=== PATIENT | female | born 1960 | race Caucasian/White ===

== ENCOUNTER 2018-10-30 06:17 | Inpatient (IN) | payer SELFPAY ==
[2018-10-30 07:01] LABS: #Basophils 0.1 thou/uL (0.0-0.2); #Eosinphils 0.2 thou/uL (0.0-0.7); #Lymphocytes 2.3 thou/uL (1.20-3.40); #Monocytes 0.5 thou/uL (0.11-0.59); #Neutrophils 10.2 thou/uL (1.40-6.50); %Basophils 1.1 % (0.0-1.0); %Eosinophils 1.2 % (0.0-10.0); %Lymphocytes 17.4 % (21.0-51.0); %Monocytes 4.1 % (0.0-10.0); %Neutrophils 76.3 % (42.0-75.0); Hemoglobin 15.7 g/dL (12.0-16.0); Mean Corpuscular HGB CONC 33.3 g/dL (32.0-36.0); Mean Corpuscular Hemoglobin 29.7 pg (27.0-31.0); Mean Corpuscular Volume 89.2 fL (78.0-98.0); Mean Platelet Volume 7.6 fL (7.4-10.4); Platelet Count 349 thou/uL (130-400); RBC Distribution Width 12.7 % (11.5-14.5); Red Blood Cell (RBC) Count 5.29 mill/uL (4.20-5.40); White Blood Cell (WBC) Count 13.4 thou/uL (4.8-10.8)
[2018-10-30 07:20] LABS: Bacteria/HPF None Seen HPF (None Seen); Bilirubin Negative (Negative); Blood, Urine 1+ (Negative); Clarity Clear (Clear); Glucose, Urine (Dipstick) Normal (Negative); Leukocyte Negative Leu/uL (Negative); Mucous/LPF Rare LPF (<2+); Nitrite Negative (Negative); Protein, Urine (Dipstick) 100 mg/dL (Neg-Trace); Squamous Epithelial 0-3 HPF (0-3); Urobilinogen Normal mg/dL (Less than 2); WBC/HPF 0-3 HPF (0-3)
[2018-10-30 07:23] LABS: ALT (SGPT) 11 U/L (8-55); AST (SGOT) 20 U/L (5-34); Albumin 4.7 g/dL (3.5-5.0); Alkaline Phosphatase 130 U/L (40-150); Anion Gap 14 mmol/L (10-20); BUN (Urea Nitrogen) 13 mg/dL (9.8-20.1); Bilirubin, Total 0.8 mg/dL (0.2-1.2); Calc. Creatinine Clearance 0 mL/min (70-130); Calcium 10.2 mg/dL (7.8-10.44); Carbon Dioxide 24 mmol/L (22-29); Chloride 104 mmol/L (98-107); Estimated GFR-MDRD 52; Globulin 4.1 g/dL (2.4-3.5); Glucose 100 mg/dL (70-105); Potassium 4.4 mmol/L (3.5-5.1); Protein, Total 8.8 g/dL (6.0-8.3); Sodium 138 mmol/L (136-145)
[2018-10-30] MEDS ORDERED: Nitroglycerin 0.4 MG TAB 1 EACH ONE (07:32)
[2018-10-30 07:55] LABS: Acetaminophen Less than 6.0 mcg/mL (10.0-30.0); Alcohol Less than 10 mg/dL (Less than 10); Salicylate Less than 8.0 mg/dL (15.0-30.0)
--- NOTE | 2018-10-30 07:56 | RAD ---
RADIOGRAPH CHEST 1 VIEW: DATE: 10/30/2018 HISTORY: 58-year-old female with chest pain FINDINGS: There are no airspace densities, pulmonary edema, pneumothorax, or cardiomegaly. The lateral costophr enic angles are sharp. IMPRESSION: No acute cardiopulmonary findings.
--- NOTE | 2018-10-30 08:05 | CT ---
CT angiogram thorax with contrast CT angiogram abdomen with contrast: DATE: 10/30/2018 HISTORY: 58-year-old female with left-sided chest pain and back pain. Rule out aortic dissection. TECHNIQUE: IV injection of iodinated contrast. Arterial bolus chasing technique. Scan acquisition from top of aortic arch to iliac crests. 3-D MIP reconstructions. FINDINGS: No aortic aneurysm, dissection, or rupture. Lung apices excluded from images. No suspicious pulmonary mass, pulmonary edema, consolidation, pleural effusion, or pneumothorax ident ified. No cardiomegaly or pericardial effusion. Not enough IV contrast in pulmonary arteries to evaluate for pulmonary thromboembolism. No mediastinal or hilar lymphadenopathy. High-grade degenerative disc disease in several levels of mid thoracic spine and at least one level i n upper lumbar spine. No compression fracture of thoracic spine or lumbar spine. Asymmetrically small left kidney containing a large number of low-density lesion replacing much of th e left renal parenchyma. At least most of these represent cysts. Some of them could represent hemorrhagic cysts. One of the le sions at the apex of the left renal upper pole parenchyma appears solid, as previously described on CTA of the chest of 08/15/2016 report. Within the limitations of an arterial phase only scan, no obvious abnormality identified involving ri ght kidney, pancreas, liver, spleen, or adrenals. The visualized portions of small bowel demonstrate no dilation. No obvious gross abnormality of visualized portions of colon. No ascites. IMPRESSION: 1) no aortic dissection, aneurysm, or rupture. 2) abnormal left kidney. See comments above. On an elective basis, a multiphase CT of the abdomen wit h and without contrast (renal mass protocol) is recommended. 3) thoracic and lumbar spondylosis.
[2018-10-30] MEDS ORDERED: Aspirin Chewable 81 MG TAB ONE (08:18)
[2018-10-30] MEDS ORDERED: Morphine 4 MG/ML VIAL ONE ×2 (08:25→12:45)
[2018-10-30] MEDS ORDERED: Amlodipine 5 MG TAB ONE (09:05)
[2018-10-30] MEDS ORDERED: Labetalol HCl 100 MG/20 ML VIAL ONE (09:05)
[2018-10-30 09:17] LABS: Amphetamine Not Detected (NotDetected); Barbiturates Screen Not Detected (NotDetected); Benzodiazepine Screen Not Detected (NotDetected); Cocaine Metabolite Screen Not Detected (NotDetected); Medtox Control Line Valid? VALID (VALID); Medtox Reader # READER 4; Methadone Not Detected (NotDetected); Methamphetamine Not Detected (NotDetected); Opiate Screen Not Detected (NotDetected); Oxycodone Screen Not Detected (NotDetected); Phencyclidine (PCP) Not Detected (NotDetected); THC/Cannabinoid Screen Detected (NotDetected); Tricyclic Screen Not Detected (NotDetected)
[2018-10-30] MEDS ORDERED: Levothyroxine Sodium 100 MCG TAB PO SCH (09:30)
[2018-10-30 10:25] LABS: Troponin I 0.012 ng/mL (< 0.028)
[2018-10-30 13:32] LABS: Troponin I Less than 0.010 ng/mL (< 0.028)
[2018-10-30] MEDS ORDERED: niCARdipine 20MG In NaCl 20 MG/200 ML BAG ONE (14:57)
[2018-10-30] MEDS ORDERED: ISOVUE-370 76%-LOCM 1 ML ONE (15:58)
[2018-10-30 16:18] LABS: Free T4 (Free Thyroxine) 0.82 ng/dL (0.70-1.48)
[2018-10-30 16:53] VITALS: BMI 28.0
[2018-10-30] MEDS: Carvedilol 3.125 MG TAB PO SCH (16:58)
[2018-10-30] MEDS: Morphine 4 MG/ML VIAL SLOW IVP PRN ×2 (16:58→21:37)
--- NOTE | 2018-10-30 19:11 | HP ---
CHIEF COMPLAINT: Left flank and left-sided chest pain. HISTORY OF PRESENT ILLNESS: The patient is a 58-year-old female, who had the chest pain going on for, according to her, more than a year. Every single day, she has continuous pain. It fluctuates in this intensity. At the time of my evaluation, she rates the pain at 3 after she received a morphine injection. She denies any shortness of breath, but she started having some nausea and vomiting on and off for the last year or so, and she has this left flank pain and back pain basically on daily basis. She was told that she has a left renal mass and she needs to be seen by a specialist. Apparently, she was calling several different places and since she does not have any funds, she was not accepted and she was not seen by anybody, even she called the MD Duffy with negative results. She has some hot flashes on and off. No fever. No chills. No headaches. She gets constipated on and off. She has not been taking any medication for more than a year. Her primary care physician used to be Dr. Trinidad, but not anymore. She did not see him for more than a year. Her surrogate decision maker is Arnie Beckwith, her . PAST MEDICAL HISTORY: Positive for, 1. Hypertension. 2. Hypothyroidism. 3. Hyperlipidemia. PAST SURGICAL HISTORY: Hysterectomy. SOCIAL HISTORY: She drinks occasionally. She smokes less than a pack per day. She uses cannabis too. She does not use any IV pain drugs. FAMILY HISTORY: Her mother in her 80s, and she was on hemodialysis. She does not really know the exact cause of her . Her father at the age of 64 and he had a stomach cancer. ALLERGIES: NONE. MEDICATIONS: None. REVIEW OF SYSTEMS: All systems were reviewed and the symptoms were negative, except for those symptoms mentioned in the HPI. PHYSICAL EXAMINATION: VITAL SIGNS: Her blood pressure is 226/126, pulse is 71, respirations are 20. Pain is level at 3. Pulse oximetry is 96% on room air. HEENT: Her head is atraumatic and normocephalic. Eyes are PERRLA. Sclerae are nonicteric. Conjunctivae are pinkish. Oral mucosa is moist. NECK: Supple. LUNGS: Clear. HEART: S1, S2 normal. No S3. No S4. No any murmur. ABDOMEN: Soft, nontender, nondistended. Bowel sounds are present. No organomegaly. EXTREMITIES: No clubbing, cyanosis, or edema. NEUROLOGICAL: She is alert and oriented x4. There are no any motor or sensory deficits present. The left flank and below her left breast area is tender to touch. LABORATORY DATA: Labs showed a white count of 13.4, hemoglobin is 15.7, hematocrit is 47.2, platelet count is 349,000. Normal chemistry, except for albumin of 4.7, globulin of 4.1, lipase of 40. TSH third generation 22.63. Urinalysis showed 100 of proteins, 10 of ketones, 1+ blood, 7 to 10 rbc's, 4 to 6 hyaline casts. Toxicology urine screen test showed positive for cannabinoids. Alcohol less than 10. IMAGING STUDIES: Chest x-ray personally reviewed by me did not show any acute cardiopulmonary changes. CT angiogram for dissection personally reviewed by me showed no aortic dissection, aneurysm, or rupture. Abnormal left kidney with some cystic structures, with some hemorrhagic component, and probably some solid component. EKG to be done. IMPRESSION: 1. Chest pain/left flank pain, could be related to her left kidney cyst and possible neoplasm, although this could be also a chest wall pain, but this is less likely since this is going on for quite some time. 2. Hypertensive emergency. 3. Hypothyroidism. 4. The patient is positive for cannabis. 5. Elevated white count, etiology to be established. 6. Noncompliance. PLAN: Full admission to Critical Care Unit. IV Hep-Lock. Activities, bedrest and bathroom privileges. Morphine IV push 4 mg every 4 hours p.r.n. as needed and Cardene drip to control her blood pressure to approximately 140s systolic over 80 diastolic. The patient received amlodipine and labetalol in the emergency room. Her blood pressure went down, but very soon after the treatment, it went up again to systolic more than 200s. We will get Urology consultation for the left kidney. The patient received 100 mcg of Synthroid p.o. for her elevated TSH at 22. We will get three T3 and free T4. We will continue 100 mcg daily. We will get an additional information about the current condition by doing electrocardiogram, which is pending at this moment of my dictation. We will do DVT prophylaxis with SCDs and Lovenox, and we will start her on carvedilol 3.125 mg twice a day and up-titrate as needed. Job ID: [id number]
[2018-10-30] MEDS: niCARdipine 25 MG in Sodium Chloride 0.9% 250 ML 250 ML IVPB SCH (19:47)
[2018-10-30] MEDS: Ondansetron PF 4 MG/2 ML Vial IVP PRN (20:38)
[2018-10-30] MEDS: Famotidine 20 MG TAB PO SCH (20:38)
[2018-10-31] MEDS: Morphine 4 MG/ML VIAL SLOW IVP PRN ×4 (01:49→17:24)
[2018-10-31] MEDS ORDERED: hydrALAZINE 20 MG/ML VIAL SLOW IVP PRN (02:36)
[2018-10-31 04:32] LABS: #Basophils 0.1 thou/uL (0.0-0.2); #Eosinphils 0.2 thou/uL (0.0-0.7); #Lymphocytes 2.2 thou/uL (1.20-3.40); #Monocytes 0.5 thou/uL (0.11-0.59); #Neutrophils 7.9 thou/uL (1.40-6.50); %Basophils 0.5 % (0.0-1.0); %Eosinophils 1.4 % (0.0-10.0); %Lymphocytes 20.6 % (21.0-51.0); %Neutrophils 72.6 % (42.0-75.0); Hemoglobin 14.3 g/dL (12.0-16.0); Mean Corpuscular HGB CONC 32.6 g/dL (32.0-36.0); Mean Corpuscular Hemoglobin 29.9 pg (27.0-31.0); Mean Corpuscular Volume 91.7 fL (78.0-98.0); Mean Platelet Volume 7.9 fL (7.4-10.4); Platelet Count 281 thou/uL (130-400); RBC Distribution Width 12.8 % (11.5-14.5); White Blood Cell (WBC) Count 10.9 thou/uL (4.8-10.8)
[2018-10-31 05:00] LABS: Anion Gap 14 mmol/L (10-20); BUN (Urea Nitrogen) 9 mg/dL (9.8-20.1); Calc. Creatinine Clearance 93 mL/min (70-130); Calcium 9.3 mg/dL (7.8-10.44); Carbon Dioxide 19 mmol/L (22-29); Chloride 105 mmol/L (98-107); Estimated GFR-MDRD 74; Glucose 106 mg/dL (70-105); Sodium 134 mmol/L (136-145)
[2018-10-31] MEDS: Ondansetron PF 4 MG/2 ML Vial IVP PRN ×2 (05:59→15:55)
[2018-10-31] MEDS: Levothyroxine Sodium 100 MCG TAB PO SCH (06:00)
[2018-10-31] MEDS: niCARdipine 25 MG in Sodium Chloride 0.9% 250 ML 250 ML IVPB SCH ×2 (07:00→12:51)
[2018-10-31] MEDS ORDERED: Amlodipine 10 MG TAB PO SCH (07:15)
[2018-10-31] MEDS: Carvedilol 3.125 MG TAB PO SCH ×2 (08:04→17:16)
[2018-10-31] MEDS: Enoxaparin Sodium 40 MG/0.4 ML SYRINGE SC SCH (08:04)
[2018-10-31] MEDS: Famotidine 20 MG TAB PO SCH ×2 (08:04→20:33)
--- NOTE | 2018-10-31 10:01 | CON ---
DATE OF CONSULTATION: 10/31/2018 HISTORY OF PRESENT ILLNESS: Ms. Thompson is a 58-year-old female, who presented with chest discomfort to the emergency department. She said she has had this for a year. She had a CT dissection protocol done in the emergency department, which showed an abnormal left kidney, which appears to be multiple cysts. Urology is being consulted. She presented with poorly controlled blood pressure, and subsequently, had Cardene started. Says she has not been taking her blood pressure pills. She gave me about 5 different reasons. She was not taking her blood pressure pills, none of which made sense. She is a smoker. She says she could not afford her blood pressure pills, but I reminded her that her generic blood pressure pills are probably cheaper than her cigarettes. Her blood pressure was 170 systolic when I saw her earlier. After I met with her, she was 218/125, so the Cardene drip was started. Norvasc 10 mg was ordered. She was on an ERIN inhibitor, she says at home, but as mentioned, she was not taking it. She denies chest discomfort at the time of my evaluation. PAST MEDICAL HISTORY: Remarkable for hypothyroidism and lipid disorder as well as a hysterectomy. SOCIAL HISTORY: She smokes half pack a day. She drinks occasionally. She smokes marijuana. She denies IV drug use. FAMILY HISTORY: Positive for renal failure and cancer. ALLERGIES: SHE REPORTS NO DRUG ALLERGIES. REVIEW OF SYSTEMS: 10 point review of systems completed, otherwise negative. PHYSICAL EXAMINATION: GENERAL: She is in absolutely no distress. She became tearful after the nurse talked to her earlier and became tearful after I talked to her. VITAL SIGNS: Currently, her blood pressure is 180/83, heart rate is 91, respiratory rate is in the teens. HEAD: Unremarkable. NECK: Unremarkable. LUNGS: Clear. HEART: Regular rhythm. S1 and S2 are normal. ABDOMEN: Soft and nontender. EXTREMITIES: Without clubbing, cyanosis, or edema. LABORATORY DATA: White count 10.9, hemoglobin 14.3, platelets 281. Sodium 134, potassium 4, chloride 105, bicarb 19, BUN 9, creatinine 0.7, glucose 106. Coags were normal. D-dimer was normal. Urinalysis showed 7 to 10 red cells. Drug screen was positive for marijuana. IMPRESSION: 1. Medical noncompliance with hypertension. 2. Probable noncardiac chest discomfort given that she has been having pain for a year. 3. Renal lesions most of which are cyst by the radiologist's interpretation of her CAT scan. Urology apparently was consulted. Once she is weaned off Cardene, she can be transferred out of the Critical Care Unit. We will sign off. I suspect compliance will continue to be an issue in the future. This is a 70 minute consult, with greater than 50% of time spent on unit coordinating care. Job ID: [id number] MTDD
--- NOTE | 2018-10-31 16:46 | CON ---
DATE OF CONSULTATION: 10/31/2018 CONSULTING PHYSICIAN: Ti Maradiaga MD REASON FOR CONSULTATION: Solid renal mass. HISTORY OF PRESENT ILLNESS: Ms. Thompson is a 58-year-old white female, who presented to the emergency room with left chest and subcostal pain radiating toward her back. She was evaluated for a CT aortic dissection protocol for concerns about a possible aortic dissection and was admitted to the ICU. Her workup was entirely negative for dissection or cardiac causes of her pain. It is still not entirely clear why she is having that pain, but she is associated with nausea and vomiting. Poor appetite, feelings of bloating on her left side as well as having this episodic like nature to the pain. On the CT, it was noted that she had an approximately 2 cm mass in the upper pole of her left kidney, which was reported as small as well. I was consulted for further assistance on this. On my discussion with the patient, she does not report any significant urinary complaints. She does not have problem with infections. She has had no hematuria. She denies any previous urologic surgeries. She states that she has had a CT previously in around 2017 at [facility] in [place]. I have reviewed that images myself and it does again show the same mass, largely unchanged from its current profile. ALLERGIES: NONE. CURRENT HOME MEDICATIONS: None. PAST MEDICAL HISTORY: 1. Hypertension. 2. Hypothyroidism. 3. Hyperlipidemia. PAST SURGICAL HISTORY: Hysterectomy. FAMILY HISTORY: Significant for end-stage renal disease and stomach cancer. Noncontributory for renal masses or renal cancer. SOCIAL HISTORY: Patient does drink alcohol. She smokes occasionally. Does use marijuana device. Denies any other illicit drugs such as IV illicit drugs. REVIEW OF SYSTEMS: A 12-point review of systems were reviewed and negative other than what was commented on the HPI. She also denies any fevers or chills. Currently. PHYSICAL EXAMINATION: VITAL SIGNS: Temperature 98.4, pulse 71, blood pressure 138/53, respirations 17, and saturation 93% on room air. GENERAL: No apparent distress. Communicative, alert, and appears slightly older than stated age. HEENT: Normocephalic and atraumatic. Pupils are symmetric and round. Eyes are somewhat sunken with dark rings around the eyes. Moist mucous membranes. Trachea midline. Mild thyromegaly. CARDIOVASCULAR: Regular rate and rhythm. Normal S1 and S2, symmetric pulses. CHEST: No increased work of breathing. Symmetric expansion. LUNGS: Clear anteriorly. ABDOMEN: Soft, mildly tender to palpation on the left. Nondistended. No guarding, rebound, or peritoneal signs. No hernias. No obvious masses otherwise. : Deferred at this time. EXTREMITIES: No clubbing, cyanosis, or edema. NEUROLOGIC: Cranial nerves 2 through 12 grossly intact. No focal motor or sensory deficits identified. Lymph nodes none enlarged in the cervical, supraclavicular, or abdominal region. MUSCULOSKELETAL: No joint deformities or joint erythema noted. Range of motion seems normal. PSYCHIATRIC: Alert and oriented x3. Appropriate mood and affect. LABORATORY EVALUATION: The full set of labs are in the [facility] system, which I have reviewed. Of note, the patient's white count is 10.9 with hematocrit of 44. Creatinine is 0.79. Urinalysis demonstrates 100 protein, 1+ blood with 7 to 10 rbc's, 0 to [address] aortic dissection protocol from October 30 demonstrates no evidence of aortic dissection aneurysm ruptures. There is an abnormal left kidney which appears somewhat atrophic with a large number of low-density lesions, most likely representing cysts, some of them could be hemorrhagic cyst. There is one solid mass on the upper pole of the left kidney measuring approximately 2.2 cm, which is present again from a CT from November 15, 2016. This is largely unchanged. ASSESSMENT AND PLAN: A 58-year-old white female with micro hematuria and a solid left renal mass. This renal mass has been stable over two years. This does not exclude malignancy, but if there is malignancy, it probably is a less aggressive or slow-growing cancer. I would recommend continued surveillance as there is a high probability of this being a benign lesion as well. Given the lack of growth, I would consider repeat scan in one year with a dedicated CT renal protocol. The patient should also consider a cystoscopy. At the current time. The patient is uninsured and she states that she would not be able to afford a lot of the procedures that are being done right now. She would like to try and obtain insurance fist and then she will contact me when she is ready to schedule office followup. I would give consideration to cystoscopy next available as well as a repeat CT scan in one year. For now, there is nothing further I would do on this admission. May want to consider a GI consult for her symptoms as they appear to have some gastric symptoms. There is no obvious renal etiology based on lack of hydronephrosis relatively non-concerning UA findings and good blood flow to the kidneys, not just any type of infarction. I will go ahead and sign off at the current time. Please re-consult if any other concerns or questions. Job ID: [id number]
[2018-10-31] MEDS ORDERED: Carvedilol 3.125 MG TAB PO SCH (18:41)
--- NOTE | 2018-10-31 18:44 | PDOC.HOSPP ---
- Subjective Subjective: Says she still feels poorly. Has intermittent pain on the left chest below the left breast. Says her left breast hangs lower than the right. Feels like she is generally edematous in the left chest area. Says this has been present for a year and has progressed during that time. Has resulted in missed work, loss of a job and now the inability to pay for physician visits or meds. She is aware that she has had thyroid problems. Was on medication in the past, but has been off it for a while. Has chronic wet cough. - Objective Vital Signs & Weight: Vital Signs (12 hours) Temp Pulse BP Pulse Ox 10/31/18 16:00 98 F 10/31/18 12:00 98.4 F 93 L 10/31/18 08:03 91 180/83 H 10/31/18 08:00 98.1 F 97 Weight Admit Weight 168 lb 13.985 oz Weight 168 lb 13.985 oz Most Recent Monitor Data Heart Rate from ECG 102 NIBP 196/100 NIBP BP-Mean 132 Respiration from ECG 19 SpO2 88 I&O: 10/30/18 10/31/18 11/01/18 06:59 06:59 06:59 Intake Total 1269 420 Output Total 1325 1400 Balance -56 -980 Result Diagrams: 10/31/18 04:23 10/31/18 04:23 ROS - Medication Medications: Active Medications Generic Name Dose Route Start Last Admin Trade Name Freq PRN Reason Stop Dose Admin Enoxaparin Sodium 40 mg 10/31/18 09:00 10/31/18 08:04 Lovenox SC 40 mg 0900 IMAN Administration Famotidine 20 mg 10/30/18 21:00 10/31/18 08:04 Pepcid PO 20 mg BID IMAN Administration Hydralazine HCl 10 mg 10/31/18 02:36 10/31/18 03:31 Apresoline SLOW IVP 10 mg Q4H PRN Administration SBP > 180 and HR < 70 Nicardipine HCl 25 mg/ Sodium 260 mls @ 0 mls/hr 10/30/18 15:24 10/31/18 12: 51 Chloride IVPB 260 mls INF IMAN Administration Protocol Titrate Levothyroxine Sodium 100 mcg 10/31/18 06:00 10/31/18 06:00 Synthroid PO 100 mcg 0600 IMAN Administration Morphine Sulfate 4 mg 10/30/18 15:24 10/31/18 17:24 Morphine SLOW IVP 4 mg Q4H PRN Administration Chest Pain Ondansetron HCl 4 mg 10/30/18 20:28 10/31/18 15:55 Zofran IVP 4 mg Q6H PRN Administration Nausea/Vomiting Sodium Chloride 10 ml 10/31/18 09:00 10/31/18 11:11 Flush - Normal Saline IVF 10 ml Q12HR IMAN Administration - Exam NAD, awake alert Neck - other findings: Thyromegaly, R>L. non-tender. Smooth. Respiratory: CTAB, no wheezes, no rales, no ronchi, normal chest expansion, no tachypnea, normal percussion Gastrointestinal: soft, non-tender, non-distended, normal bowel sounds, no palpable masses, no hepatomegaly, no splenomegaly, no bruit Extremities: no cyanosis, no clubbing, no edema Skin: normal turgor Musculoskeletal: normal tone Musculoskeletal - other findings: TTP in the costochondral area below the left breast. Psychiatric: normal affect, normal behavior, A&O x 3 Hosp A/P (1) Hypertensive urgency Code(s): I16.0 - HYPERTENSIVE URGENCY Status: Acute (2) Thyromegaly Code(s): E01.0 - IODINE-DEFICIENCY RELATED DIFFUSE (ENDEMIC) GOITER Status: Acute (3) Hypothyroidism Code(s): E03.9 - HYPOTHYROIDISM, UNSPECIFIED Status: Acute (4) Marijuana use Code(s): F12.90 - CANNABIS USE, UNSPECIFIED, UNCOMPLICATED Status: Acute (5) Tobacco abuse Code(s): Z72.0 - TOBACCO USE Status: Acute - Plan Continue Cardene gtt until BP adequately controlled with po's. Amlodipine started. Will stop the Carvediolol and start Metoprolol 25 bid. Continue thyroid supplementation. Not sure we will be able to resolve the chronic pain situation while she is here this time. She has talked with CM and has paperwork to apply for some resources so that hopefully she can get her meds and follow up with a PCP...and stop smoking cigarettes and marijuana.
--- NOTE | 2018-10-31 20:18 | ULT ---
Ultrasound thyroid: DATE: 10/31/2018 HISTORY: 58-year-old female with goiter COMPARISON: None available FINDINGS: Isthmus: 1.1 cm AP Right lobe: 6.6 x 3.2 x 3.1 cm Left lobe: 5.8 x 2.3 x 2 cm Bilateral thyroid parenchymal echotexture is diffusely coarse. No discrete thyroid solid or cystic nodule identified with visible borders identified. IMPRESSION: 1. Thyromegaly and coarse echotexture. 2. Differential diagnosis is Eris's thyroiditis versus Graves' disease
[2018-10-31] MEDS: Metoprolol Tartrate 25 MG TAB PO SCH (20:33)
[2018-11-01] MEDS: Morphine 4 MG/ML VIAL SLOW IVP PRN (02:12)
[2018-11-01] MEDS: Ondansetron PF 4 MG/2 ML Vial IVP PRN (02:12)
[2018-11-01] MEDS: Levothyroxine Sodium 100 MCG TAB PO SCH (06:56)
[2018-11-01] MEDS: Amlodipine 10 MG TAB PO SCH (09:35)
[2018-11-01] MEDS: Enoxaparin Sodium 40 MG/0.4 ML SYRINGE SC SCH (09:42)
[2018-11-01] MEDS: Famotidine 20 MG TAB PO SCH ×2 (09:42→20:11)
[2018-11-01] MEDS: Metoprolol Tartrate 25 MG TAB PO SCH ×2 (09:42→20:11)
[2018-11-01] MEDS: HYDROcodone/Acetaminophen 7.5/325 mg Tablet PO PRN ×3 (09:54→20:11)
--- NOTE | 2018-11-01 11:37 | PRG ---
DATE OF SERVICE: 11/01/2018 SERVICE: Pulmonary Medicine. INTERVAL HISTORY: The patient has been off the nicardipine drip for a while. Her blood pressures have been decent. Otherwise, there has been no interval change to her condition. She denies having any chest pain or shortness of breath. She is not having nausea or vomiting. She has a good appetite. Her strength has improved dramatically. Otherwise, there has been no interval change to the patient's condition. PHYSICAL EXAMINATION: VITAL SIGNS: Afebrile, pulse 61, blood pressure 188/91, respirations 16, and saturation 95% on room air. GENERAL: The patient is awake and alert, in no apparent distress. LUNGS: Decent air entry. Dependent crackles are minimal. HEART: Normal rate. Regular. ABDOMEN: Soft, nontender, and nondistended. Bowel sounds are positive. MUSCULOSKELETAL: No cyanosis or clubbing. No pitting in the bilateral lower extremities. NEUROLOGIC: Grossly nonfocal. LABORATORY DATA: WBC 10.9, hemoglobin 14.3, and platelets 281,000. Troponins are negative x3. Lipase 40. TSH falls within normal limits. Basic metabolic profile is otherwise unremarkable. Urinalysis is positive for minimal blood, and minimal ketones. Cannabinoids are positive on the urine drug screen. Otherwise, everything is negative. IMAGIN. Thyroid ultrasound demonstrates thyromegaly and coarse echotexture. Eris's and Graves are within the differential. 2. CT dissection protocol demonstrates no evidence of a dissection. ASSESSMENT: 1. Hypertension. 2. Hypothyroidism. 3. Marijuana abuse. DISCUSSION AND PLAN: The patient is stable for transition out of the ICU to the medical unit. She has no further requirements for inpatient Pulmonary or Critical Care opinion. When she arrives on the floor, we will sign off. Please call with additional questions or concerns through time. Job ID: [id number]
--- NOTE | 2018-11-01 12:35 | PDOC.HOSPP ---
- Subjective Subjective: Feels much better overall. Says everything feels better. Slept last night for the first time in a while. - Objective Vital Signs & Weight: Vital Signs (12 hours) Temp Pulse Resp BP BP BP Pulse Ox 11/01/18 11:13 98.3 F 62 18 176/93 H 93 L 11/01/18 10:26 97.8 F 61 16 197/96 H 95 11/01/18 09:35 95 193/133 H 11/01/18 08:00 96 11/01/18 07:00 98 F Weight Admit Weight 168 lb 13.985 oz Weight 168 lb 13.985 oz Most Recent Monitor Data Heart Rate from ECG 75 NIBP 188/91 NIBP BP-Mean 123 Respiration from ECG 15 SpO2 95 I&O: 10/31/18 11/01/18 11/02/18 06:59 06:59 06:59 Intake Total 1269 1119 740 Output Total 1325 2200 0 Balance -56 -1081 740 Result Diagrams: 10/31/18 04:23 10/31/18 04:23 ROS - Medication Medications: Active Medications Generic Name Dose Route Start Last Admin Trade Name Freq PRN Reason Stop Dose Admin Hydrocodone Bitart/Acetaminophen 1 tab 11/01/18 09:44 11/01/18 09:54 [place] 7.5/325 PO 1 tab Q4H PRN Administration Moderate to Severe Pain (6-10) Amlodipine Besylate 10 mg 11/01/18 09:00 11/01/18 09:35 Norvasc PO 10 mg DAILY IMAN Administration Enoxaparin Sodium 40 mg 10/31/18 09:00 11/01/18 09:42 Lovenox SC 40 mg 0900 IMAN Administration Famotidine 20 mg 10/30/18 21:00 11/01/18 09:42 Pepcid PO 20 mg BID IMAN Administration Hydralazine HCl 10 mg 10/31/18 02:36 10/31/18 03:31 Apresoline SLOW IVP 10 mg Q4H PRN Administration SBP > 180 and HR < 70 Levothyroxine Sodium 100 mcg 10/31/18 06:00 11/01/18 06:56 Synthroid PO 100 mcg 0600 IMAN Administration Metoprolol Tartrate 25 mg 10/31/18 21:00 11/01/18 09:42 Lopressor PO 25 mg BID IMAN Administration Ondansetron HCl 4 mg 10/30/18 20:28 11/01/18 02:12 Zofran IVP 4 mg Q6H PRN Administration Nausea/Vomiting Sodium Chloride 10 ml 10/31/18 09:00 11/01/18 09:44 Flush - Normal Saline IVF 10 ml Q12HR IMAN Administration - Exam NAD, awake alert Neck - other findings: Thyromegaly. Heart: RRR, no murmur, no gallops, no rubs, normal peripheral pulses Respiratory: CTAB, no wheezes, no rales, no ronchi, normal chest expansion, no tachypnea, normal percussion Gastrointestinal: soft, non-tender, non-distended, normal bowel sounds, no palpable masses, no hepatomegaly, no splenomegaly, no bruit Extremities: no cyanosis, no clubbing, no edema Skin: normal turgor, no lesions, no rashes Neurological: CN's grossly intact Musculoskeletal: normal tone Psychiatric: normal affect, normal behavior, A&O x 3 Hosp A/P (1) Hypertensive urgency Code(s): I16.0 - HYPERTENSIVE URGENCY Status: Acute (2) Thyromegaly Code(s): E01.0 - IODINE-DEFICIENCY RELATED DIFFUSE (ENDEMIC) GOITER Status: Acute (3) Hypothyroidism Code(s): E03.9 - HYPOTHYROIDISM, UNSPECIFIED Status: Acute (4) Marijuana use Code(s): F12.90 - CANNABIS USE, UNSPECIFIED, UNCOMPLICATED Status: Acute (5) Tobacco abuse Code(s): Z72.0 - TOBACCO USE Status: Acute (6) Renal mass Code(s): N28.89 - OTHER SPECIFIED DISORDERS OF KIDNEY AND URETER Status: Acute (7) Thoracic radiculopathy Code(s): M54.14 - RADICULOPATHY, THORACIC REGION Status: Acute - Plan She told the floor nurse on arrival here that she didn't know what was going on and we weren't doing anything to fix her problems. Then told me she felt great. BP much improved with PO Amlodipine and Metoprolol. Discussed both to these medications in detail. Thyromegaly with heterogeneity on scan. Unchanged from the CT of 08/01. Continue thyroid supplementation. Initial CT with thoracic spondylosis. Likely source of her pain. Discussed this with her and now she tells me that she was aware of this and has been told in the past that it was likely the source of her pain. She declined to consider surgery then. Discussed treatment options. Will start gabapentin. Discussed the medication and potential SE's at length. Discussed the renal mass. Essentially unchanged from 08/01. Urology recommended follow up imaging at one year. She understands the plan per Urology. She has talked with CM and has paperwork to apply for some resources so that hopefully she can get her meds and follow up with a PCP...and stop smoking cigarettes and marijuana. If BP holds today on po's can go later today or tomorrow.
[2018-11-01] MEDS ORDERED: Gabapentin 300 MG CAP PO SCH (12:45)
[2018-11-01] MEDS: Gabapentin 300 MG CAP PO SCH ×2 (16:08→20:11)
[2018-11-02] MEDS: HYDROcodone/Acetaminophen 7.5/325 mg Tablet PO PRN ×2 (05:00→09:34)
[2018-11-02] MEDS: Levothyroxine Sodium 100 MCG TAB PO SCH (05:01)
[2018-11-02] MEDS: Amlodipine 10 MG TAB PO SCH (09:11)
[2018-11-02] MEDS: Famotidine 20 MG TAB PO SCH (09:11)
[2018-11-02] MEDS: Enoxaparin Sodium 40 MG/0.4 ML SYRINGE SC SCH (09:11)
[2018-11-02] MEDS: Gabapentin 300 MG CAP PO SCH (09:11)
[2018-11-02] MEDS: Metoprolol Tartrate 25 MG TAB PO SCH (09:11)
[2018-11-02 12:44] VITALS: BP 166/94; TEMP 98.3
--- NOTE | 2018-11-04 07:55 | DIS ---
DATE OF ADMISSION: 10/30/2018 DATE OF DISCHARGE: 11/02/2018 DISCHARGE DIAGNOSES: 1. Hypertensive urgency. 2. Noncompliance with medications. 3. Marijuana abuse. 4. Tobacco abuse. 5. Thyromegaly, chronic. 6. Hypothyroidism, chronic. 7. Renal mass, unchanged from previous imaging. 8. 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 HISTORY OF PRESENT ILLNESS: This patient is a 58-year-old female who presented to the emergency department reporting left chest and flank pain. The patient was found to have significant hypertension and had a CT of the chest with dissection protocol performed, which was notable for no aortic dissection. There was a lesion on the left kidney which has apparently been present on prior imaging and there was thoracic and lumbar spondylosis. The patient was admitted to the hospital for hypertensive urgency and chest pain. HOSPITAL COURSE: The patient was placed in ICU, where she was seen in consultation with Pulmonary Critical Care. She received IV medications for blood pressure management until she could be started on oral regimen and her blood pressure was adequate. At that time, the IV medicines were discontinued and she was transferred to the medical floor. The patient continued to report pain in her left chest and flank area, which she has reported it had been present for over a year and had been slowly progressive during that time. The patient reported that this was the reason that she was unable to work; therefore, she lost insurance; therefore, she could not afford her medications to control her blood pressure. When she was back on oral blood pressure medications, her blood pressure was well stabilized. The patient's chest pain was much more musculoskeletal in nature. Ultimately, it was felt that this was likely thoracic radiculopathy from the thoracic spondylosis. When I explained this to the patient at that point, the history of her not having had evaluation of this or knowing the sources of it changed to the fact that she had been told all of this before and had been told that surgery would likely not be a good option for her, I agreed with that assessment and started her on some gabapentin and she seemed to tolerate that well. The patient was also noted to have a significant amount of thyromegaly, somewhat larger on the right. She had a thyroid ultrasound which was consistent with a heterogeneous thyromegaly consistent with Graves disease or Eris's thyroiditis. The patient was counseled about this and again, she then recounted that she had had this worked up previously. This was unchanged from a previous CT scan and was felt to be stable in nature. She was encouraged to continue on her thyroid medication in order to suppress any additional growth of the thyroid. The patient's kidney lesion prompted a consultation to Urology. The urologist, Dr. Ragland felt that the lesion had been essentially insignificantly changed from previous imaging and while a malignancy could not be ruled out; if it was worse such, it would be very slow growing. He recommended followup imaging in 1 year in order to confirm stability of the mass. He also recommended the patient consideration for outpatient cystoscopy. He felt that this was not relative to her symptoms for which she presented. Once she was on appropriate medications, her blood pressure was stable. She felt well. She was felt to be stable for discharge. PHYSICAL EXAMINATION: VITAL SIGNS: On the day of discharge, temperature is 98.3, pulse 76, respirations 16, O2 saturation 98% on room air, BP 166/94. GENERAL: She was awake, alert, oriented, pleasant, cooperative. HEART: Regular rate and rhythm. LUNGS: Clear bilaterally. ABDOMEN: Soft, nontender, and nondistended. Positive bowel sounds. EXTREMITIES: No cyanosis, clubbing, or edema. DISPOSITION: The patient is discharged to home in good condition. ACTIVITY: As tolerated. DIET: She should stay on an unrestricted diet. She was reported that she was committed to staying off cigarettes from this point forward. She was also counseled about no marijuana use. DISCHARGE MEDICATIONS: She will be on: 1. Amlodipine 10 mg daily. 2. Gabapentin 300 mg t.i.d. 3. Synthroid 100 mcg p.o. daily. 4. Metoprolol 25 mg b.i.d. FOLLOWUP: She is to establish with a primary care provider and she can follow up with the hospital should she have any problems prior to that time. TIME SPENT: Total time in discharge activities including greater than 50% of the time being spent in [id number] time with the patient was 37 minutes. Job ID: [id number]
== END 2018-11-02 12:44 | disposition home or self-care (01) | DRG 552 ==
LOC: ERS 06:17 → ERHOLD 09:17 → CCU 16:41 → T4-B 11-01 10:36
PROVIDERS: ADMIT Internal Medicine; ATTEND Internal Medicine
DX: M47.894 Other spondylosis, thoracic region (principal); I16.1 Hypertensive emergency; N28.1 Cyst of kidney, acquired; M54.14 Radiculopathy, thoracic region; I16.0 Hypertensive urgency; E01.0 Iodine-deficiency related diffuse (endemic) goiter; N28.9 Disorder of kidney and ureter, unspecified; D72.829 Elevated white blood cell count, unspecified; F17.210 Nicotine dependence, cigarettes, uncomplicated; E78.5 Hyperlipidemia, unspecified; F12.10 Cannabis abuse, uncomplicated; R31.9 Hematuria, unspecified; Z90.710 Acquired absence of both cervix and uterus; Z91.14 Patient's other noncompliance with medication regimen
CPT/HCPCS: 36415; 71045; 71275; 76536; 80048; 80053; 80306; 80307; 81003; 81015; 83690; 84439; 84443; 84481; 84484; 85025; 93005; 96365; 96366; 96374; 96375; 96376; J0360; J1650; J2270; J2405; J7050; Q9966